=== PATIENT | female | born 1950 | race Caucasian/White ===

== ENCOUNTER 2025-05-21 10:23 | Outpatient (CLI) | payer MEDICARE, MEDICAID ==
[~2025-05-21] VITALS: Ht 165.1 cm; Wt 68.1 kg
[~2025-05-21 10:23] MED LIST: BUDE9TAB4 PO; CURC1POW2 MC; CURC500C PO; ENTY1INJ IV; ESTR0.1C5 VG; MAGNESIUM OIL TOP; PRED-1142 PO; PRED15SO24 PO; RA C1OIL PO; SULF500T56 PO; VITA-243 PO; VITA268C PO; VITA40TA PO; ZINC50TA4 PO
[2025-05-21 10:30] VITALS: BP 137/85; O2SAT 95
[2025-05-21] MEDS: VEDOLIZUMAB 300 MG in NS 250 ML IV ONE (11:16)
[2025-05-21 12:00] VITALS: BP 134/79; O2SAT 98
== END 2025-05-21 12:01 ==
LOC: M INFU 10:23 → MERGE 10:23 → M INFU 12:01
PROVIDERS: ATTEND Internal Medicine Gastroenterology
DX: K51.90 Ulcerative colitis, unspecified, without complications (principal); Z88.1 Allergy status to other antibiotic agents
CPT/HCPCS: 96413; J3380

== ENCOUNTER → 2025-06-26 | Outpatient (CLI) | payer MEDICARE, MEDICAID ==
[~2025-06-26] MED LIST changes: +ZINC50TA37 PO; -ZINC50TA4 PO
== END ==
LOC: M LAB 11:35
PROVIDERS: ATTEND Internal Medicine Gastroenterology
DX: K51.30 Ulcerative (chronic) rectosigmoiditis without complications (principal)

== ENCOUNTER → 2025-07-23 | Outpatient (CLI) | payer MEDICARE ==
[~2025-07-23] VITALS: Ht 165.1 cm; Wt 72.6 kg
[2025-07-23 14:40] VITALS: BP 132/85; O2SAT 100
[2025-07-23] MEDS: VEDOLIZUMAB 300 MG in NS 250 ML IV ONE (15:20)
[2025-07-23 16:00] VITALS: BP 160/85; O2SAT 100
== END ==
LOC: M INFU 11:00
PROVIDERS: ATTEND Internal Medicine Gastroenterology
DX: K51.30 Ulcerative (chronic) rectosigmoiditis without complications (principal); Z88.1 Allergy status to other antibiotic agents; Z88.8 Allergy status to other drugs, medicaments and biological substances
CPT/HCPCS: 96413; J3380

== ENCOUNTER 2025-09-17 14:34 | Outpatient (CLI) | payer MEDICARE ==
[~2025-09-17] VITALS: Ht 165.1 cm; Wt 70.0 kg
[2025-09-17 15:00] VITALS: BP 136/98; O2SAT 98
[2025-09-17] MEDS: VEDOLIZUMAB 300 MG in NS 250 ML IV ONE (15:20)
[2025-09-17 16:00] VITALS: BP 150/80; O2SAT 98
== END 2025-09-17 16:00 | disposition home or self-care (01) ==
LOC: M INFU 14:34
PROVIDERS: ATTEND Internal Medicine Gastroenterology
DX: K51.30 Ulcerative (chronic) rectosigmoiditis without complications (principal); Z88.1 Allergy status to other antibiotic agents
CPT/HCPCS: 96413; J3380